=== PATIENT | male | born 1955 | race Caucasian/White ===

== ENCOUNTER 2018-11-09 15:59 | Outpatient (CLI) | payer BC ==
--- NOTE | 2018-11-09 17:45 | RAD ---
LUMBAR SPINE TWO VIEWS: 11/09/18 HISTORY: Low back pain. Recent surgery. FINDINGS: There are five lumbar type vertebrae. Left pedicle screws and vertical patricia at the L5-S1 level. The L5 pedicle screw overlies the superior end plate on the lateral view. There is disc space narrowing and 0.8 cm spondylolisthesis at the postoperative level. Minimal physiologic wedging of T12 and L1 with end plate sclerotic changes at T12. Osteophytosis thro ughout the facets. Leftward convexed rotatory scoliotic curvature. Calcification over the arterial st ructures. IMPRESSION: Postoperative and degenerative changes lumbar spine as detailed above. Atherosclerosis. POS: [facility]
== END 2018-11-09 16:00 | disposition home or self-care (01) ==
LOC: TBSIIMAG 15:59
PROVIDERS: ATTEND Neurological Surgery
DX: M43.17 Spondylolisthesis, lumbosacral region (principal); M47.816 Spondylosis without myelopathy or radiculopathy, lumbar region; Z98.890 Other specified postprocedural states
CPT/HCPCS: 72100; 72148

== ENCOUNTER 2018-12-21 15:50 | Outpatient (CLI) | payer BC ==
--- NOTE | 2018-12-21 16:12 | RAD ---
EXAM: Lumbar spine 2 views: HISTORY: Lumbar radiculopathy COMPARISON: 11/09/2018 FINDINGS: Left sided pedicle screws at L5-S1 with mild stable anterolisthesis. No evidence for acute fracture or dislocation involving the visualized spine. There are disc osteophytosis and facet arthrosis changes. No evidence for a bone lesion. IMPRESSION: Spondylosis. Left-sided pedicle screws at L5-S1 with mild stable anterolisthesis.
== END 2018-12-21 15:51 | disposition home or self-care (01) ==
LOC: TBSIIMAG 15:50
PROVIDERS: ATTEND Neurological Surgery
DX: M47.26 Other spondylosis with radiculopathy, lumbar region (principal); M43.17 Spondylolisthesis, lumbosacral region; Z98.890 Other specified postprocedural states
CPT/HCPCS: 72100

== ENCOUNTER 2019-08-18 14:03 | Outpatient (CLI) | payer MEDICARE ==
--- NOTE | 2019-08-18 14:32 | RAD ---
TWO VIEWS CHEST: HISTORY: Presurgical evaluation. COMPARISON: None. FINDINGS: Cardiac silhouette and pulmonary vasculature are within normal limits. The lungs are clear. Minimal degenerative change is seen in the spine. Vascular calcification in the thoracic aorta. IMPRESSION: No acute cardiopulmonary process. POS: OFF
== END 2019-08-18 14:04 | disposition home or self-care (01) ==
LOC: BICRAD 14:03
DX: Z01.89 Encounter for other specified special examinations (principal)
CPT/HCPCS: 36415; 71046; 80053; 81001; 85025; 85610; 85730; 87081; 87086